=== PATIENT | female | born 1975 | race Caucasian/White ===

== ENCOUNTER 2016-12-10 06:51 | Day surgery (SDC) | payer OTHER ==
[~2016-12-10] VITALS: Ht 167.6 cm; Wt 72.2 kg
--- NOTE | 2016-12-17 08:33 | OR ---
ADMIT: 12/10/2016 RM/LOC: [facility] MR#: [id number] [address] [id number] [address], [place] [address] Operative/Delivery Room Report SEX: F AGE: 41 : 1975 SURGERY DATE: 12/10/2016 SURGEON: Alverto Ibarra MD PREOPERATIVE DIAGNOSIS: Rectal pain with bleeding and mucus discharge. POSTOPERATIVE DIAGNOSIS: Grade 1 internal hemorrhoids. PROCEDURE: Colonoscopy to the ileocolonic anastomosis. ANESTHESIA: IV general. DESCRIPTION OF PROCEDURE: The patient was taken to the endoscopy suite and placed left side down on her hospital cart. IV sedation was established. A rectal exam was performed. On inspection, there was no significant external hemorrhoidal tissue that was inflamed. There was no other abnormality. The flexible colonoscope was advanced through the rectum to the sigmoid colon, where the ileocolonic anastomosis was. This was widely patent. The scope was then withdrawn with inspection of the remainder of the colon and rectum. There was no inflammatory change or other abnormality. The scope was retroflexed in the rectum to carefully inspect the internal hemorrhoids. These were grade 1 and non inflammatory currently. The scope was straightened and withdrawn. There was no mucosal prolapse demonstrated while she was under anesthesia. The patient tolerated the procedure well and transferred to recovery in stable condition. PLAN: We will plan to initiate infrared coagulation therapy to the internal hemorrhoid component. I will also encourage her to add bulk to her diet with Metamucil to see if that will improve the mucosal prolapse issue. Alverto Ibarra MD/ liliana JOB #: [id number] CC: Alverto Ibarra, Attending Physician Keyur Biggs, Family Physician Keyur Biggs MD
== END 2016-12-10 10:35 | disposition home or self-care (01) ==
LOC: SSS 06:51
PROC: 0DJD8ZZ Inspection of Lower Intestinal Tract, Via Natural or Artificial Opening Endoscopic (ICD-10-PCS; principal; 2016-12-10)
DX: K64.0 First degree hemorrhoids (principal); K21.9 Gastro-esophageal reflux disease without esophagitis; F41.9 Anxiety disorder, unspecified; D64.9 Anemia, unspecified; Z90.710 Acquired absence of both cervix and uterus; Z90.49 Acquired absence of other specified parts of digestive tract; Z88.0 Allergy status to penicillin; Z88.6 Allergy status to analgesic agent; Z88.8 Allergy status to other drugs, medicaments and biological substances; Z79.899 Other long term (current) drug therapy